=== PATIENT | male | born 1985 | race Caucasian/White ===

== ENCOUNTER 2022-10-12 08:56 | Emergency (ER) | payer SELFPAY ==
--- OUTSIDE RECORDS SUMMARY | 2022-10-12 08:59 | XMS REPORT | Continuity of Care Document ---
:1985 Author Organization [facility] t Address [address] [place] [address] Care Team Providers Name Role Phone MARLENE MERRILL Primary Care Physician Unavailable MARLENE MERRILL Attending Clinician Unavailable Nurse, [facility] Attending Clinician Unavailable Unknown, Attending Attending Clinician Unavailable YAIMA PISANO III Attending Clinician Unavailable CORIE DACOSTA Attending Clinician Unavailable Doctor Unassigned, [place] Attending Clinician Unavailable Lidya Marcus MD Attending Clinician JACKSON SORIANO Attending Clinician Unavailable Jackson Soriano MD Attending Clinician , Fito Surg Spec Procedure Attending Clinician Unavailable DONIS_Kermit Attending Clinician Unavailable LIDYA MARCUS Attending Clinician Unavailable ALMA Admitting Clinician Unavailable Payers Payer Name Policy Type Policy Number Effective Date Expiration Date S ource [facility] [id number] 2018 00:00:00 OUT OF [place] [id number] 2018 00:00:00 [place] Problems Condition Condition Condition Status Onset Resolution Last Treating Co mments Source Name Details Category Date Date Treatment Clinician Date Overweight Overweight Disease Active U nivers (BMI (BMI 8-02 ity of 25.0-29.9) 25.0-29.9) [place] [facility] [place] of [place] of Disease Active Univers left thigh left thigh 8-02 it y of 00:00: [place] [address] Medical Branch Essential Essential Disease Active Uni vers hypertensi hypertensi 7-29 it y of on on 00:00: [place] [address] Medical Branch Tobacco Tobacco Disease Active Univers dependency dependency 7-29 it y of 00:00: [place] 00 [facility] Opioid Opioid Disease Active Univers dependence dependence 1-16 it y of 00:00: [place] 00 [facility] Allergies, Adverse Reactions, Alerts Allergy Allergy Status Severity Reaction(s) Onset Inactive Treating Comm ents Source Name Type Date Date Clinician NO KNOWN Drug Active Univers ALLERGIE Class ity of S [facility] Social History Social Habit Start Date Stop Date Quantity Comments Source History of tobacco 2005-05-14 Cigarette Smoker University of use 00:00:00 [facility] Exposure to 2022-09-28 2022-10-08 Not sure [facility] SARS-CoV-2 (event) 00:00:00 15:28:00 [facility] Alcohol intake 2022-10-08 2022-10-08 Ex-drinker [facility] 00:00:00 00:00:00 (finding) [facility] Cigarettes smoked 2022-05-07 2022-05-07 [facility] ity of current (pack per 00:00:00 00:00:00 [facility] ) - Reported Branch Tobacco use and 2022-05-07 2022-05-07 Smokeless Universit y of exposure 00:00:00 00:00:00 tobacco non-user [facility] Sex Ass[birth year] Universit y of 00:00:00 00:00:00 [facility] Smoking Status Start Date Stop Date Source Smokes tobacco daily 2022-05-07 00:00:00 Univers ity of [facility] Medications Ordered Filled Start Stop Current Ordering Indication Dosage Frequency Signature Comments Components Source Medication Medication Date Date Medication? Clinician (SIG) Name Name amLODIPine 2021-09 Yes [id number] 10mg Take 1 U nivers 10 mg 2-16 tablet by ity of tablet 00:00: mouth in [place] [address] the Medical morning. Branch amLODIPine 2021-09 Yes [id number] 10mg Take 1 U nivers 10 mg 2-16 tablet by ity of tablet 00:00: mouth in [place] [address] the Medical morning. Branch amLODIPine 2021-09 Yes [id number] 10mg Take 1 U nivers 10 mg 2-16 tablet by ity of tablet 00:00: mouth in [place] [address] the Medical morning. Branch amLODIPine 2021-09 Yes [id number] 10mg Take 1 U nivers 10 mg 2-16 tablet by ity of tablet 00:00: mouth in [place] 00 the Medical morning. Branch amLODIPine Yes [id number] 10mg Take 1 U nivers 10 mg 9-16 tablet by ity of tablet 00:00: mouth in [place] 00 the Medical morning. Branch amLODIPine Yes [id number] 10mg Take 1 U nivers 10 mg 9-16 tablet by ity of tablet 00:00: mouth in [place] 00 the Medical morning. Branch amLODIPine 2021- No [id number] 10mg Take 1 Univers 10 mg 9-16 12-16 tablet by ity of tablet 00:00: 00:00 mouth in [place] 00 :00 the Medical morning. Branch AMLODIPINE 2021- No [id number] 5mg TAKE 1 Univers 5 mg tablet 06-03-16 TABLET BY it y of 00:00: 00:00 MOUTH IN [place] 00 :00 THE Medical MORNING Branch AMLODIPINE 2021- No [id number] 5mg TAKE 1 Univers 5 mg tablet 06-03-16 TABLET BY it y of 00:00: 00:00 MOUTH IN [place] 00 :00 THE Medical MORNING Branch metoprolol 2021- No [id number] TAKE 1 Univers succinate 7-25 09-16 TABLET BY ity of XL 50 mg 24 00:00: 00:00 MOUTH ONCE [place] hr [facility]- No [id number] TAKE 1 Univers succinate 7-25 09-16 TABLET BY ity of XL 50 mg 24 00:00: 00:00 MOUTH ONCE [place] hr tablet 00 :00 DAILY AT [facility] methadone Yes methadone Uni vers 40 mg 7-29 40 mg ity of [place] 13:32[place] 56 Take 1 Medical tablet Branch every day by oral route. methadone Yes methadone Uni vers 40 mg 7-29 40 mg ity of [place] 13:32[place] 56 Take 1 Medical tablet Branch every day by oral route. methadone Yes methadone Uni vers 40 mg 7-29 40 mg ity of [place] 13:32: [place] 56 Take 1 Medical tablet Branch every day by oral route. methadone Yes methadone Uni vers 40 mg 7-29 40 mg ity of [place] 13:32: [place] 56 Take 1 Medical tablet Branch every day by oral route. methadone Yes methadone Uni vers 40 mg 7-29 40 mg ity of [place] 13:[place]: [place] 56 Take 1 Medical tablet Branch every day by oral route. methadone Yes methadone Uni vers 40 mg 7-29 40 mg ity of [place] 13:32: [place] 56 Take 1 Medical tablet Branch every day by oral route. Immunizations Ordered Filled Immunization Date Status Comments [facility] e Immunization Name Name SARS-COV-2 COVID-19 2021-03-16 Completed Unive rsity of PFIZER VACCINE 00:00:00 [facility] SARS-COV-2 COVID-19 2021-03-16 Completed Unive rsity of PFIZER VACCINE 00:00:00 [facility] SARS-COV-2 COVID-19 2021-03-16 Completed Unive rsity of PFIZER VACCINE 00:00:00 [facility] SARS-COV-2 COVID-19 2021-03-16 Completed Unive rsity of PFIZER VACCINE 00:00:00 [facility] SARS-COV-2 COVID-19 2021-03-16 Completed Unive rsity of PFIZER VACCINE 00:00:00 [facility] SARS-COV-2 COVID-19 2021-03-16 Completed Unive rsity of PFIZER VACCINE 00:00:00 [facility] SARS-COV-2 COVID-19 2021-02-24 Completed Unive rsity of PFIZER VACCINE 00:00:00 [facility] SARS-COV-2 COVID-19 2021-02-24 Completed Unive rsity of PFIZER VACCINE 00:00:00 [facility] SARS-COV-2 COVID-19 2021-02-24 Completed Unive rsity of PFIZER VACCINE 00:00:00 [facility] SARS-COV-2 COVID-19 2021-02-24 Completed Unive rsity of PFIZER VACCINE 00:00:00 [facility] SARS-COV-2 COVID-19 2021-02-24 Completed Unive rsity of PFIZER VACCINE 00:00:00 [facility] SARS-COV-2 COVID-19 2021-02-24 Completed Unive rsity of PFIZER VACCINE 00:00:00 [facility] Vital Signs Vital Name Observation Time Observation Value Comments Source Systolic blood 2022-10-08 22:03:00 133 mm[Hg] Univer sity of pressure [place] [facility] Diastolic blood 2022-10-08 22:03:00 84 mm[Hg] Unive rsity of pressure [facility] Heart rate 2022-10-08 22:02:00 76 /min Universi ty of [facility] Body temperature 2022-10-08 22:02:00 36.78 Amber Univ ersity of [facility] Body height 2022-10-08 22:02:00 188 cm Universi ty of [place] [facility] [place] Body weight 2022-10-08 22:02:00 109.317 kg Universi ty of [facility] BMI 2022-10-08 22:02:00 30.94 kg/m2 Universi ty of [facility] Oxygen saturation in 2022-10-08 22:02:00 100 /min University of Arterial blood by [facility] Pulse oximetry Branch Systolic blood 2022-10-02 01:34:00 146 mm[Hg] Univer sity of pressure [place] [facility] Diastolic blood 2022-10-02 01:34:00 91 mm[Hg] Unive rsity of pressure [facility] Heart rate 2022-10-02 01:33:00 90 /min Universi ty of [place] [facility] [place] Body temperature 2022-10-02 01:33:00 36.78 Amber [facility] ersity of [facility] Respiratory rate 2022-10-02 01:33:00 17 /min Univ ersity of [place] [facility] Body height 2022-10-02 01:33:00 188 cm Universi ty of [place] [facility] Body weight 2022-10-02 01:33:00 110.224 kg Universi ty of [place] [facility] BMI 2022-10-02 01:33:00 31.20 kg/m2 Universi ty of [place] [facility] Oxygen saturation in 2022-10-02 01:33:00 100 /min University of Arterial blood by [facility] Pulse oximetry Branch Systolic blood 2022-06-11 21:09:00 146 mm[Hg] Univer sity of pressure [place] [facility] Diastolic blood 2022-06-11 21:09:00 80 mm[Hg] Unive rsity of pressure [facility] Heart rate 2022-06-11 21:08:00 97 /min [facility] Body temperature 2022-06-11 21:08:00 36.83 [facility] Body height 2022-06-11 21:08:00 185.4 cm [facility] Body weight 2022-06-11 21:08:00 107.502 kg [facility] BMI 2022-06-11 21:08:00 31.27 kg/m2 [facility] Oxygen saturation in 2022-06-11 21:08:00 99 /min [facility] Arterial blood by [facility] Pulse oximetry Branch Procedures This patient has no known procedures. Encounters Start End Encounter Admission Attending Care Care Encounter Source Date/Time Date/Time Type Type Clinicians Facility Department ID 2022-12-10 2022-12-10 [id number] Univers 11:00:00 11:00:00 [facility] 2022-10-08 2022-10-08 [facility] [id number] Univers 15:40:00 16:29:58 [facility] 2022-10-08 2022-10-08 Office [facility] 1.2.840.114 [id number] Univers 15:40:00 16:29:58 Visit [facility] [id number] ity of [place] [id number] Pro as JESSICA?BLEA [phone] [facility] [address] [place] MEDICAL OFFICE [facility] 2022-10-01 2022-10-01 Nurse Nurse, [facility] 1.2.840.114 [id number] Univers 19:30:00 19:50:00 Visit Unknown, [facility] HEALTH [id number] ity of [place] [id number] Pro as JESSICA?BLEA [phone] [facility] [address] [place] MEDICAL OFFICE BUILDING 2022-10-01 2022-10-01 Outpatient Kermit PISANO III [facility] [id number] Univers 19:30:00 19:30:00 YAIMA [facility] 2022-09-17 2022-09-17 Outpatient R DESIRAE [facility] [id number] Univers 10:00:00 10:00:00 [facility] 2022-09-13 2022-09-13 [facility] [id number] Univers 16:20:00 16:20:00 [facility] 2022-09-10 2022-09-10 [facility] [id number] Univers 10:40:00 10:40:00 [facility] 2022-09-10 2022-09-10 [facility] 1.2.840.114 [id number] Univers 00:00:00 00:00:00 [facility] 350.1.13.10 ity [facility] [id number] Pro as JESSICA?BLEA [id number] In [address] MEDICAL OFFICE BUILDING 2022-09-03 2022-09-03 [facility] [id number] Univers 16:20:00 16:20:00 [facility] 2022-08-17 2022-08-17 [facility] [id number] Univers 16:40:00 16:40:00 [facility] 2022-08-13 2022-08-13 [facility] [id number] Univers 16:00:00 16:00:00 [facility] 2022-07-09 2022-07-09 [facility] [id number] Univers 11:20:00 11:20:00 [facility] 2022-06-11 2022-06-11 [facility] [id number] Univers 16:00:00 16:24:52 [facility] 2022-06-11 2022-06-11 Office [facility] 1.2.840.114 [id number] Univers 16:00:00 16:24:52 Visit [facility] 350.1.13.10 ity of [place] [id number] Pro as JESSICA?BLEA [id number] [address] OFFICE [facility] 2022-06-02 2022-06-02 [facility] 1.2.840.114 [id number] Univers 00:00:00 00:00:00 Marlene HEALTH 350.1.13.10 ity of [place] [id number] Pro as JESSICA?BLEA [id number] [address] OFFICE [facility] 2022-05-07 2022-05-07 Outpatient R DESIRAE [facility] [id number] Univers 16:00:00 16:34:51 [facility] 2022-05-07 2022-05-07 Office [facility] 1.2.840.114 [id number] Univers 16:00:00 16:34:51 Visit [facility] 350.1.13.10 ity of [place] 4.2.7.2.686 Pro as JESSICA?BLEA [id number] [address] OFFICE [facility] 2022-05-07 2022-05-07 Orders Doctor SHERMAN 1.2.840.114 [id number] Univers 00:00:00 00:00:00 Only Unassigned, MAGGY 350.1.13.10 ity of Schneider [facility] 4.2.7.2.686 Pro as [id number] [address] 2022-04-26 2022-04-26 Outpatient R DESIRAE [facility] [id number] Univers 16:00:00 16:00:00 [facility] 2022-04-18 2022-04-18 [facility]h [facility] 1.2.840.114 [id number] Univers 00:00:00 00:00:00 Wondiful A HEALTH 350.1.13.10 ity of [place] 4.2.7.2.686 Pro as JESSICA?BLEA [id number] [address] OFFICE [facility] 2022-02-11 2022-02-11 Outpatient Kermit SORIANO [facility] [id number] Univers 16:00:00 16:00:00 JACKSON dial [facility] 2022-02-09 2022-02-09 Outpatient R BO [facility] [id number] Univers 15:00:00 16:14:10 JACKSON dial [facility] 2022-02-09 2022-02-09 Office [facility] [id number] Univers 15:00:00 16:14:10 Visit Jackson L[place] 350.1.13.10 i ty [place] 4.2.7.2.[place] [id number] [address] 2022-02-04 2022-02-04 [facility]phone [facility] 1.2.840.114 [id number] Univers 00:00:00 00:00:00 Jackson CULLEN 350.1.13.10 i ty [place] 4[place]2.7.2.[place] [id number] In dic[address] 2022-01-14 2022-01-14 Outpatient R [facility] [id number] Univers 13:00:00 14:47:19 JACKSON dial [facility] 2022-01-14 2022-01-14 Office Jackson Soriano [facility] 1.2.840.1 [id number] Univers 13:00:00 14:47:19 Visit Rm, Adc Surg Spec Procedure SUBHASH 3 50.1.13.10 ity of [place] 4[place]2.7.2.[place] [id number] [address] 2022-01-14 2022-01-14 Outpatient R BO [facility] [id number] Univers 13:00:00 14:47:19 JACKSON dial [facility] 2022-01-14 2022-01-14 Outpatient R [facility] [id number] Univers 13:00:00 14:47:19 JACKSON dial [facility] 2022-01-14 2022-01-14 Orders Doctor WHITAKER 1.2.840.114 [id number] Univers 00:00:00 00:00:00 Only Unassigned, MAGGY 350.1.13.10 [facility] 4.2.7.2.686 Pro as [id number] [address] 2021-12-24 2021-12-24 Outpatient R BO [facility] [id number] Univers 16:30:00 16:30:00 JACKSON dial [facility] 2021-12-23 2021-12-23 Telephone [facility] 1.2.840.114 [id number] Univers 00:00:00 00:00:00 Jackson CULLEN 350.1.13.10 i ty [place] [phone] In dical NAL [address] [facility] 2021-10-28 2021-10-28 Refill [facility] 1.2.840.114 [id number] Univers 00:00:00 00:00:00 Wondiful A HEALTH 350.1.13.10 ity of [place] 4.2.7.2.686 Por as PROFESSIO [id number] In dical [address] OFFICE BUILDING ONE 2021-07-20 2021-07-20 Outpatient ERICKSON_R [facility] [id number] [place] 08:48:00 08:48:00 025 [facility] 2021-05-21 2021-05-21 Office [facility] [id number] Univers 14:53:07 15:31:49 Visit Jackson Bravoton 350.1.13.10 i ty [place] 4[place]2.7.2.[place] [phone] In dical [place]al [address] [place] [address] 2021-05-21 2021-05-21 Outpatient R [facility] [id number] Univers 15:00:00 15:00:00 JACKSON dial [facility] 2021-04-23 2021-04-23 Office [facility] 1.2.840.114 [id number] Univers 13:10:08 14:36:36 Visit Wondiful [facility] 350.1.13.10 ity of [place] 4.2.7.2.686 Pro as Professio [id number] In dical nal 0[address] Branch Office [address] One 2021-04-23 2021-04-23 Outpatient R ANGELINE [facility] [id number] Univers 13:30:00 13:30:00 WONDIFUL ity o f [facility] 2021-04-23 2021-04-23 Orders Doctor SHERMAN 1.2.840.114 [id number] Univers 00:00:00 00:00:00 Only Unassigned, MAGGY 350.1.13.10 ity of [place] [facility] 4.2.7.2.686 Pro as [phone] [place] [address] Branch Results This patient has no known results.
[2022-10-12 09:17] LABS: Urine Blood Trace-intact (Negative); Urine Glucose Negative (Negative); Urine Protein Negative (Negative); Urine Specific Gravity 1.015 (1.005-1.030)
[2022-10-12 09:29] LABS: Absolute Lymphocytes (CBC) 1.1 K/uL (0.7-4.9); Hematocrit 41.4 % (39.6-49.0); Lymphocytes % 17.1 % (15.3-44.8); MCV 86.4 fL (80-100); MPV 9.3 fL (7.6-11.3); RBC Red Blood Cell Count 4.79 M/uL (4.33-5.43)
--- NOTE | 2022-10-12 09:50 | RAD REPORT ---
EXAM DESCRIPTION: Nichole Single View10/12/2022 9:38 am CLINICAL HISTORY: Palpitations COMPARISON: none FINDINGS: Vague nodular opacity overlies the left lung base. Right lung appears clear The heart is normal size IMPRESSION: Vague nodular opacity overlies the left lung base which may represent confluence of ribs and vessels, nipple shadow or pulmonary nodule. It is recommended that the patient have a followup P A and lateral chest series in 6 months for re-evaluation
[2022-10-12 09:54] LABS: Magnesium 2.3 mg/dL (1.6-2.4); Potassium 3.9 mmol/L (3.5-5.1); Thyroid Stimulating Hormone 0.662 uIU/mL (0.358-3.740); Troponin High Sensitivity 3.7 pg/mL (<58.9)
--- NOTE | 2022-10-12 10:09 | EDPHYS ---
Physician Documentation [facility] Name: Tremaine Rosario Age: 36 yrs Sex: Male : 1985 Arrival Date: 10/12/2022 Time: 08:57 Bed 14 Private MD: ED Physician Christophe King HPI: 10/12 10:21 This 36 yrs old Male presents to ER via Ambulatory with complaints of Irregular Pulse, kb Dizziness, Fatigue. 10:21 The patient presents with a history of heart racing. Context: The symptoms occur at kb rest. Onset: The symptoms/episode began/occurred 1 week(s) ago. Duration: The patient or guardian reports multiple episodes, that are intermittent, with no pattern. Modifying factors: The symptoms are aggravated by nothing. The symptoms are alleviated by nothing. Associated signs and symptoms: Pertinent positives: anxiety, lightheadedness, Pertinent negatives: chest pain, fever, syncope, near-syncope. Severity of symptoms: At their worst the symptoms were moderate in the emergency department the symptoms are unchanged. The patient has not experienced similar symptoms in the past. The patient has been recently seen by a physician:. Pt reports intermittent palpitations, dizziness, and fatigue that has been intermittent since last week. Reports his dr changed his HTN med from metoprolol to amlodipine 4 months ago. He saw PCP on Tuesday for these symptoms and was told it was anxiety. Historical: - Allergies: 09:00 No Known Allergies; aa5 - Home Meds: 09:00 amlodipine oral [Active]; aa5 - PMHx: 09:00 Hypertensive disorder; aa5 - PSHx: 09:00 left leg cyst removed; aa5 - Immunization history:: Adult Immunizations unknown. - Social history:: Smoking status: Patient denies any tobacco usage or history of. ROS: 10:21 Respiratory: Negative for shortness of breath, cough, wheezing, and pleuritic chest kb pain. 10:21 Constitutional: Positive for fatigue. 10:21 Cardiovascular: Positive for palpitations. 10:21 Neuro: Positive for dizziness. 10:21 All other systems are negative. Exam: 09:19 Constitutional: This is a well developed, well nourished patient who is awake, alert, kb and in no acute distress. Head/Face: Normocephalic, atraumatic. ENT: Moist Mucous membranes Cardiovascular: Regular rate and rhythm with a normal S1 and S2. No gallops, murmurs, or rubs. No pulse deficits. Respiratory: Respirations even and unlabored. No increased work of breathing. Talking in full sentences Abdomen/GI: Soft, non-tender. No distention Skin: Warm, dry with normal turgor. Normal color. MS/ Extremity: Pulses equal, no cyanosis. Neurovascular intact. Full, normal range of motion. Neuro: Awake and alert, GCS 15, oriented to person, place, time, and situation. Moves all extremities. Normal gait. Psych: Awake, alert, with orientation to person, place and time. Behavior, mood, and affect are within normal limits. 09:19 ECG was reviewed by the Attending Physician. Vital Signs: 09:01 BP 156 / 95; Pulse 98; Resp 20 S; Temp 98.2(TE); Pulse Ox 98% on R/A; Weight 108.86 kg aa5 (R); Height 6 ft. 2 in. (187.96 cm) (R); 10:00 BP 129 / 81; Pulse 61; Resp 18 S; Pulse Ox 94% on R/A; kc6 09:01 Body Mass Index 30.81 (108.86 kg, 187.96 cm) aa5 MDM: 09:04 Patient medically screened. kb 10:20 Data reviewed: vital signs, nurses notes. Consideration of Admission/Observation kb Escalation of care including admission/observation considered. 10:20 Differential diagnosis: arrythmia, dehydration, stress disorder. Independent kb interpretation of the following test(s) in the Emergency Department EKG: See my EKG interpretation above. Test considered but Not performed: Other Details CT considered, but pt has no shortness of breath, chest pain, normal d-dimer. 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 10/12 09:04 Order name: Basic Metabolic Panel; Complete Time: 09:57 kb 10/12 09:04 Order name: CBC with Diff; Complete Time: 09:34 kb 10/12 09:04 Order name: D-Dimer; Complete Time: 09:57 kb 10/12 09:04 Order name: Magnesium; Complete Time: 09:57 kb 10/12 09:04 Order name: NT PRO-BNP; Complete Time: 09:57 kb 10/12 09:04 Order name: Troponin HS; Complete Time: 09:57 kb 10/12 09:04 Order name: XRAY Chest (1 view); Complete Time: 09:57 kb 10/12 09:04 Order name: EKG; Complete Time: 09:05 kb 10/12 09:04 Order name: Cardiac monitoring; Complete Time: 09:10 kb 10/12 09:04 Order name: EKG - Nurse/Tech; Complete Time: 09:10 kb 10/12 09:04 Order name: IV Saline Lock; Complete Time: 09:24 kb 10/12 09:04 Order name: Labs collected and sent; Complete Time: 09:25 kb 10/12 09:04 Order name: TSH; Complete Time: 09:57 kb 10/12 09:17 Order name: Urine Dipstick-Ancillary; Complete Time: 09:34 EDMS 10/12 09:04 Order name: O2 Per Protocol; Complete Time: 09:10 kb 10/12 09:04 Order name: O2 Sat Monitoring; Complete Time: 09:10 kb 10/12 09:09 Order name: Urine Dipstick-Ancillary (obtain specimen); Complete Time: 09:15 kb EC:19 Rate is 77 beats/min. Rhythm is regular. QRS Cameron is Normal. MA interval is normal at kb 148 msec. QRS interval is normal at 94 msec. QT interval is normal at 450 msec. Administered Medications: No medications were administered Disposition: 12:49 Co-signature as Attending Physician, Christophe King MD I reviewed the patient's care rt provided by the Advanced Practice Provider and agree with the diagnosis and treatment plan. Disposition Summary: 10/12/22 10:09 Discharge Ordered Location: Home kb Condition: Stable kb Diagnosis - Palpitations kb Followup: kb - With: Emergency Department - When: As needed - Reason: Worsening of condition Followup: kb - With: Private Physician - When: 2 - 3 days - Reason: Recheck today's complaints, Continuance of care, Re-evaluation by your physician Discharge Instructions: - Discharge Summary Sheet kb - Palpitations, [id number] kb Forms: - Medication Reconciliation Form kb - Thank You Letter kb - Antibiotic Education kb - Prescription Opioid Use kb Prescriptions: - Hydroxyzine HCl 25 mg Oral Tablet - take 1 tablet by ORAL route every 6 hours As needed; 20 tablet; Refills: 0, kb Product Selection Permitted Signatures: Dispatcher [employer] EDAR Isela Knox, АЛЕКСАНДР-C Kenyatta Kirk RN RN aa5 Ariella Rand RN RN kc6 Christophe King MD MD rt Corrections: (The following items were deleted from the chart) 09: 09:00 PSHx: None; aa5 aa5
--- NOTE | 2022-10-12 10:09 | ER ---
Nurse's Notes [facility] Name: Tremaine Rosario Age: 36 yrs Sex: Male : 1985 Arrival Date: 10/12/2022 Time: 08:57 Bed 14 Private MD: Diagnosis: Palpitations Presentation: 10/12 09:01 Chief complaint: Patient states: "I feel my heart going fast and dizzy and without any aa5 energy, my doctor thinks it's panic attacks". Reports PCP changed medications from metoprolol to amlodipine. Coronavirus screen: At this time, the client does not indicate any symptoms associated with coronavirus-19. Ebola Screen: Patient denies travel to an Ebola-affected area in the 21 days before illness onset. Initial Sepsis Screen: Does the patient meet any 2 criteria? HR > 90 bpm. Does the patient have a suspected source of infection? No. Patient's initial sepsis screen is negative. Risk Assessment: Do you want to hurt yourself or someone else? Patient reports no desire to harm self or others. Onset of symptoms was September 2022. 09:01 Acuity: ANKITA 3 aa5 09:01 Method Of Arrival: Ambulatory aa5 Historical: - Allergies: 09:00 No Known Allergies; aa5 - Home Meds: 09:00 amlodipine oral [Active]; aa5 - PMHx: 09:00 Hypertensive disorder; aa5 - PSHx: 09:00 left leg cyst removed; aa5 - Immunization history:: Adult Immunizations unknown. - Social history:: Smoking status: Patient denies any tobacco usage or history of. Screenin:27 [facility] ED Fall Risk Assessment (Adult) History of falling in the last 3 months, kc6 including since admission No falls in past 3 months (0 pts) Confusion or Disorientation No (0 pts) Intoxicated or Sedated No (0 pts) Impaired Gait No (0 pts) Mobility Assist Device Used No (0 pt) Altered Elimination No (0 pt) Score/Fall Risk Level 0 - 2 = Low Risk Oriented to surroundings, Maintained a safe environment, Educated pt \\T\\ family on fall prevention, incl call for assistance when getting out of bed, Assessed \\T\\ reinforced patient's understanding of fall precautions, Hourly rounding (assess needs \\T\\ fall precautionary measures) done. Abuse screen: Denies threats or abuse. Denies injuries from another. Nutritional screening: No deficits noted. Tuberculosis screening: No symptoms or risk factors identified. Assessment: 09:25 General: Appears in no apparent distress. comfortable, Behavior is cooperative, kc6 appropriate for age, anxious. Pain: Denies pain. Pain does not radiate. Pain began client denies pain at this time. Neuro: Newell Agitation-Sedation Scale (RASS): +1 Restless Level of Consciousness is awake, alert, obeys commands, Oriented to person, place, time, situation, Appropriate for age. Neuro: Reports dizziness, lightheadedness. Cardiovascular: Heart tones S1 S2 present Capillary refill < 3 seconds Rhythm is sinus rhythm. Respiratory: Airway is patent Trachea midline Respiratory effort is even, unlabored, Respiratory pattern is regular, symmetrical, Breath sounds are clear bilaterally. GI: No signs and/or symptoms were reported involving the gastrointestinal system. : No signs and/or symptoms were reported regarding the genitourinary system. EENT: No signs and/or symptoms were reported regarding the EENT system. Derm: No signs and/or symptoms reported regarding the dermatologic system. Skin is intact, Skin is pink, warm \\T\\ dry. Musculoskeletal: No signs and/or symptoms reported regarding the musculoskeletal system. Circulation, motion, and sensation intact. Capillary refill < 3 seconds, Range of motion: intact in all extremities. Vital Signs: 09:01 BP 156 / 95; Pulse 98; Resp 20 S; Temp 98.2(TE); Pulse Ox 98% on R/A; Weight 108.86 kg aa5 (R); Height 6 ft. 2 in. (187.96 cm) (R); 10:00 BP 129 / 81; Pulse 61; Resp 18 S; Pulse Ox 94% on R/A; kc6 09:01 Body Mass Index 30.81 (108.86 kg, 187.96 cm) aa5 ED Course: 08:57 Patient arrived in ED. as 09:01 Arm band placed on. aa5 09:03 Triage completed. aa5 09:04 [facility] kb 09:04 Christophe King MD is Attending Physician. kb 09:04 Ariella Rand RN is Primary Nurse. kc6 09:17 EKG done, by ED staff. bc6 09:25 Basic Metabolic Panel Sent. kc6 09:25 CBC with Diff Sent. kc6 09:25 D-Dimer Sent. kc6 09:25 Magnesium Sent. kc6 09:25 NT PRO-BNP Sent. kc6 09:25 Troponin HS Sent. kc6 09:25 TSH Sent. kc6 09:25 Inserted saline lock: 20 gauge in right forearm, using aseptic technique. Blood kc6 collected. Patient maintains SpO2 saturation greater than 95% on room air. 09:27 Patient has correct armband on for positive identification. Placed in gown. Bed in low kc6 position. Call light in reach. Side rails up X 1. Client placed on continuous cardiac and pulse oximetry monitoring. NIBP monitoring applied. pvc monitor on. 09:40 XRAY Chest (1 view) In Process Unspecified. EDMS 10:21 No provider procedures requiring assistance completed. IV discontinued, intact, kc6 bleeding controlled, No redness/swelling at site. Pressure dressing applied. Administered Medications: No medications were administered Medication: 10:22 VIS not applicable for this client. kc6 Outcome: 10:09 Discharge ordered by . kb 10:21 Discharged to home ambulatory. kc6 10:21 Condition: stable 10:21 Instructed on discharge instructions, follow up and referral plans. medication usage, Demonstrated understanding of instructions, follow-up care, medications, Prescriptions given X 1. 10:22 Patient left the ED. kc6 Signatures: Dispatcher [employer] EDMS Isela Knox, [employer]-C [employer]-Bia Deal Audri RN RN [id number] Ariella Rand RN RN [id number] Ruthie Salazar Corrections: (The following items were deleted from the chart) 09:01 09:00 PSHx: None; braxton limon
[2022-10-12 10:45] VITALS: TEMP 98.2
[2022-10-12 10:46] VITALS: BP 129/81; O2SAT 94
--- NOTE | 2022-10-12 15:03 | EKG ---
Test Date: 2022-10-12 Test Time: 09:12:13 Network Intern: JAEMY MEASUREMENT RESULTS: Intervals: Rate: 77 VT: 148 QRSD: 94 QT: 398 QTc: 450 [place]: P: 49 VT: 148 QRS: 75 T: 48 INTERPRETIVE STATEMENTS: Normal sinus rhythm Normal ECG No previous ECG available for comparison Electronically Signed On 10-12-22 15:02:22 [employer] DES[employer] by Hemant Yang
== END 2022-10-12 10:22 | disposition home or self-care (01) ==
LOC: ER 08:56
DX: R00.2 Palpitations (principal); R53.83 Other fatigue; I10 Essential (primary) hypertension
CPT/HCPCS: 36415; 71045; 80048; 81003; 83735; 83880; 84443; 84484; 85025; 85379; 93005